=== PATIENT | female | born 1995 | race Caucasian/White ===

== ENCOUNTER 2018-03-17 21:55 | Emergency (ER) | payer MEDICAID ==
[~2018-03-17] VITALS: Ht 160 cm; Wt 85.3 kg
[~2018-03-17 21:55] MED LIST: ALBU17AE26 INH; HYD10 PO; PRED15SO INH
[2018-03-17 22:00] VITALS: BP_SYST 143
[2018-03-17] MEDS ORDERED: LevALBUTEROL HCL 1.25 MG/0.5 ML *CONC.* VIAL.NEB (XOPENEX CONC.) INH ONE (23:45)
[2018-03-17] MEDS ORDERED: IPRATROPIUM BROM 0.5 MG/2.5 ML VIAL.NEB (ATROVENT) IH ONE (23:45)
[2018-03-17] MEDS ORDERED: PREDNISONE 20 MG TABLET PO ONE (23:45)
[2018-03-18 00:45] VITALS: BP_SYST 143
== END 2018-03-18 00:45 | disposition left against medical advice (07) ==
LOC: SED 21:55
DX: J45.901 Unspecified asthma with (acute) exacerbation (principal); I10 Essential (primary) hypertension; Z88.0 Allergy status to penicillin; Z91.041 Radiographic dye allergy status; Z90.89 Acquired absence of other organs; Z87.442 Personal history of urinary calculi
CPT/HCPCS: 94640; 99283; J7512; J7612

== ENCOUNTER 2021-01-29 17:48 | Emergency (ER) | payer OTHER, MEDICAID ==
[~2021-01-29] VITALS: Ht 167.6 cm; Wt 93.4 kg
[2021-01-29 17:57] VITALS: BP_SYST 146
[2021-01-29] MEDS: IPRATROPIUM/ALBUTEROL SULFATE 3 ML AMPUL.NEB (DUONEB) INH ONE ×3 (18:09→20:59)
[2021-01-29] MEDS: predniSONE 20 MG TABLET PO ONE (18:40)
[2021-01-29] MEDS ORDERED: ALBU8.5H8 INH (20:40)
[2021-01-29] MEDS ORDERED: PRED20TA PO (20:40)
[2021-01-29 21:20] VITALS: BP_SYST 146
== END 2021-01-29 21:20 | disposition home or self-care (01) ==
LOC: SED 17:48
DX: J45.901 Unspecified asthma with (acute) exacerbation (principal); Z88.0 Allergy status to penicillin; Z88.8 Allergy status to other drugs, medicaments and biological substances; Z79.899 Other long term (current) drug therapy; Z20.822 Contact with and (suspected) exposure to COVID-19
CPT/HCPCS: 71045; 81025; 87426; 94640; 99285; J7512; 36415

== ENCOUNTER 2021-04-24 23:38 | Emergency (ER) | payer OTHER, MEDICAID, SELFPAY ==
[~2021-04-24] VITALS: Ht 167.6 cm; Wt 86.2 kg
[~2021-04-24 23:38] MED LIST changes: +ALBU8.5H8 INH; +PRED20TA PO
[2021-04-24 23:45] VITALS: BP_SYST 143
[2021-04-25] MEDS ORDERED: IPRATROPIUM/ALBUTEROL SULFATE 3 ML AMPUL.NEB (DUONEB) INH ONE ×3 (00:15→00:30)
[2021-04-25] MEDS ORDERED: predniSONE 20 MG TABLET PO ONE (00:30)
[2021-04-25 02:42] VITALS: BP_SYST 143
== END 2021-04-25 02:10 | disposition home or self-care (01) ==
LOC: SED 23:38
DX: J45.901 Unspecified asthma with (acute) exacerbation (principal); Z79.899 Other long term (current) drug therapy; Z88.0 Allergy status to penicillin; Z88.8 Allergy status to other drugs, medicaments and biological substances; Z20.822 Contact with and (suspected) exposure to COVID-19
CPT/HCPCS: 36415; 81025; 87426; 94640; 99283; J7512

== ENCOUNTER 2021-05-16 23:08 | Emergency (ER) | payer OTHER, MEDICAID ==
[~2021-05-16] VITALS: Ht 167.6 cm; Wt 98.0 kg
[2021-05-16 23:39] VITALS: BP_SYST 121
--- NOTE | 2021-05-16 23:42 | NUR ---
Patient triaged and placed in waiting room. VSS and patient appears in no acute distress at this time. Accompanied by self, awaiting available bed, and MD notified of need for MSE.
[2021-05-16] MEDS ORDERED: BACITRACIN 1 GM OINT TP ONE (23:55)
--- NOTE | 2021-05-17 | NUR ---
Pt BIB family to ED seeking eval for accidentally incurred a puncture to the volar aspect of her left nondominant thumb at the level of the DIP joint. Incident occurred shortly prior to arrival. No distal paresthesias or weakness to the involved digit. Tetanus up-to-date
[2021-05-17] MEDS ORDERED: LIDOCAINE 1% 10 MG/ML, 20 ML MDV INJ ONE (00:45)
--- NOTE | 2021-05-17 01:10 | NUR ---
ER at bedside examining patient.
[2021-05-17] MEDS ORDERED: BACI15OI13 TP (01:27)
[2021-05-17] MEDS ORDERED: CLIN-22 PO (01:27)
[2021-05-17] MEDS ORDERED: SILVER NITRATE APPLICATOR 1 STICK STICK..EA. TP ONE (01:35)
--- NOTE | 2021-05-17 01:40 | NUR ---
Procedure by Dr. Diaz well tolerated
[2021-05-17] MEDS ORDERED: BACITRACIN/POLYMYXIN B SULFATE 30 GM TOPICAL OINT. TP ONE (01:45)
[2021-05-17 01:50] VITALS: BP_SYST 141
--- NOTE | 2021-05-17 01:50 | NUR ---
Patient given written and verbal discharge instructions and verbalizes understanding. ER MD discussed with patient the results and treatment provided. Patient in stable condition. ID arm band removed. Rx of Bacitrcin and Clindamycin given. Patient educated on pain management and to follow up with PMD. Pain Scale 0/10 Opportunity for questions provided and answered. Medication side effect fact sheet provided.
[2021-05-17] MEDS ORDERED: CLINDAMYCIN HCL 150 MG CAPSULE PO ONE (02:00)
== END 2021-05-17 01:50 | disposition home or self-care (01) ==
LOC: SED 23:08
DX: S61.032A Puncture wound without foreign body of left thumb without damage to nail, initial encounter (principal); S61.002A Unspecified open wound of left thumb without damage to nail, initial encounter; Z79.899 Other long term (current) drug therapy; Z88.0 Allergy status to penicillin; Z88.8 Allergy status to other drugs, medicaments and biological substances; J45.909 Unspecified asthma, uncomplicated; W45.8XXA Other foreign body or object entering through skin, initial encounter; Y93.89 Activity, other specified; Y92.89 Other specified places as the place of occurrence of the external cause; Y99.8 Other external cause status
CPT/HCPCS: 11042; 99285; J2001

== ENCOUNTER 2021-06-11 11:37 | Emergency (ER) | payer OTHER, MEDICAID, SELFPAY ==
[~2021-06-11] VITALS: Ht 167.6 cm; Wt 65.8 kg
[~2021-06-11 11:37] MED LIST changes: +BACI15OI13 TP; +CLIN-22 PO
--- NOTE | 2021-06-11 11:45 | NUR ---
Pt brought by self, A&Ox4, pt presents to ER with cough/congestion x 2 days, afebrile, skin pink and warm, cap refill <3.
[2021-06-11 12:24] VITALS: BP_SYST 121
--- NOTE | 2021-06-11 12:24 | NUR ---
[facility]. Sent to the lab.
[2021-06-11] MEDS ORDERED: PRED50TA PO (12:40)
[2021-06-11 13:02] VITALS: BP_SYST 121
--- NOTE | 2021-06-11 13:02 | NUR ---
Patient given written and verbal discharge instructions and verbalizes understanding. ER MD discussed with patient the results and treatment provided. Patient in stable condition. ID arm band removed. Rx of prednisone given. Patient educated on pain management and to follow up with PMD. Pain Scale 2/10 Opportunity for questions provided and answered. Medication side effect fact sheet provided.
== END 2021-06-11 13:02 | disposition home or self-care (01) ==
LOC: SED 11:37
DX: J06.9 Acute upper respiratory infection, unspecified (principal); J45.909 Unspecified asthma, uncomplicated; Z88.0 Allergy status to penicillin; Z91.041 Radiographic dye allergy status
CPT/HCPCS: 36415; 99283; 99285

== ENCOUNTER 2022-07-05 20:52 | Emergency (ER) | payer OTHER, MEDICAID ==
[~2022-07-05] VITALS: Ht 167.6 cm; Wt 99.8 kg
[~2022-07-05 20:52] MED LIST changes: +PRED50TA PO
--- NOTE | 2022-07-05 21:02 | NUR ---
Patient to ER bed 4 to gown for evaluation. Side rails up. Report given to Chikis BELCHER.
[2022-07-05 21:03] VITALS: BP_SYST 122
[2022-07-05] MEDS ORDERED: AZIT500T3 PO (22:32)
[2022-07-05] MEDS ORDERED: BENZ150C4 PO (22:32)
[2022-07-05 22:41] VITALS: BP_SYST 123
--- NOTE | 2022-07-05 22:43 | NUR ---
Patient given written and verbal discharge instructions and verbalizes understanding. ER MD discussed with patient the results and treatment provided. Patient in stable condition. ID arm band removed. IV catheter removed intact and dressing applied, no active bleeding. Rx of given. Patient educated on pain management and to follow up with PMD. Pain Scale . Opportunity for questions provided and answered. Medication side effect fact sheet provided.
== END 2022-07-05 22:41 | disposition home or self-care (01) ==
LOC: SED 20:52
DX: J40 Bronchitis, not specified as acute or chronic (principal); R05.9 Cough, unspecified; J02.9 Acute pharyngitis, unspecified; Z88.0 Allergy status to penicillin; Z91.041 Radiographic dye allergy status; Z79.899 Other long term (current) drug therapy; Z20.822 Contact with and (suspected) exposure to COVID-19
CPT/HCPCS: 36415; 71045; 99284